=== PATIENT | female | born 1980 | race Caucasian/White ===

== ENCOUNTER 2017-09-25 10:21 | Emergency (ER) | END 2017-09-25 13:47 | disposition home or self-care (01) ==

== ENCOUNTER 2018-04-08 16:25 | Outpatient (CLI) | END 2018-04-08 21:51 | disposition home or self-care (01) ==

== ENCOUNTER 2018-04-29 08:15 | Inpatient (IN) | END 2018-05-01 13:07 | disposition home or self-care (01) | DRG 807 ==

== ENCOUNTER 2018-05-04 20:05 | Emergency (ER) | END 2018-05-04 23:11 | disposition home or self-care (01) ==

== ENCOUNTER 2018-06-11 19:24 | Emergency (ER) | END 2018-06-11 21:06 | disposition home or self-care (01) ==